=== PATIENT | female | born 2000 | race Two or more races ===

== ENCOUNTER 2021-05-20 18:04 | Emergency (ER) | payer OTHER ==
[~2021-05-20] VITALS: Ht 167.6 cm; Wt 72.6 kg
[2021-05-20] MEDS ORDERED: ADVIL LIQUI-GE200 MG PO (21:17)
== END 2021-05-20 22:16 | disposition home or self-care (01) ==
LOC: ER 18:04 → EMR PED 18:04
DX: R07.89 Other chest pain (principal); M94.0 Chondrocostal junction syndrome [Tietze]; Z11.52 Encounter for screening for COVID-19

== ENCOUNTER 2021-08-01 12:15 | Emergency (ER) | payer OTHER ==
[~2021-08-01] VITALS: Ht 167.6 cm; Wt 72.6 kg
[~2021-08-01 12:15] MED LIST: ADVIL LIQUI-GE200 MG PO
== END 2021-08-01 15:59 | disposition home or self-care (01) ==
LOC: ER 12:15
DX: R00.2 Palpitations (principal); F41.8 Other specified anxiety disorders

== ENCOUNTER 2021-12-27 02:48 | Emergency (ER) | payer OTHER ==
[~2021-12-27] VITALS: Ht 167.6 cm; Wt 74.8 kg
== END 2021-12-27 04:52 | disposition home or self-care (01) ==
LOC: ER 02:48
DX: E16.2 Hypoglycemia, unspecified (principal); R42 Dizziness and giddiness

== ENCOUNTER 2022-03-09 12:06 | Emergency (ER) | payer OTHER ==
[~2022-03-09] VITALS: Ht 167.6 cm; Wt 77.1 kg
[2022-03-09] MEDS ORDERED: ZITHROMAX500 MG PO (16:43)
[2022-03-09] MEDS ORDERED: ALBUTEROL2.5 MG/3 M IH (16:43)
[2022-03-09] MEDS ORDERED: TUSNEL LIQUID178 ML PO (16:43)
== END 2022-03-09 16:55 | disposition home or self-care (01) ==
LOC: ER 12:06
DX: J22 Unspecified acute lower respiratory infection (principal); Z20.822 Contact with and (suspected) exposure to COVID-19

== ENCOUNTER 2022-04-05 11:34 | Outpatient (CLI) | payer OTHER ==
[~2022-04-05 11:34] MED LIST changes: +ALBUTEROL2.5 MG/3 M IH; +TUSNEL LIQUID178 ML PO; +ZITHROMAX500 MG PO
== END 2022-04-05 11:50 | disposition home or self-care (01) ==
LOC: SONOGRAMA 11:34
PROVIDERS: ATTEND Obstetrics & Gynecology
DX: N93.8 Other specified abnormal uterine and vaginal bleeding (principal)

== ENCOUNTER → 2022-04-12 | Emergency (ER) | payer OTHER ==
[~2022-04-12] VITALS: Ht 167.6 cm; Wt 65.8 kg
== END | disposition left against medical advice (07) ==
LOC: ER 23:33
DX: Z53.21 Procedure and treatment not carried out due to patient leaving prior to being seen by health care provider (principal)

== ENCOUNTER 2022-06-14 14:25 | Emergency (ER) | payer OTHER ==
[~2022-06-14] VITALS: Ht 167.6 cm; Wt 74.8 kg
== END 2022-06-14 19:42 | disposition home or self-care (01) ==
LOC: ER 14:25
DX: N93.8 Other specified abnormal uterine and vaginal bleeding (principal)

== ENCOUNTER 2022-10-02 13:27 | Emergency (ER) | payer OTHER ==
[~2022-10-02] VITALS: Ht 167.6 cm; Wt 73.5 kg
== END 2022-10-02 20:05 | disposition home or self-care (01) ==
LOC: ER 13:27
DX: O26.899 Other specified pregnancy related conditions, unspecified trimester (principal); Z3A.00 Weeks of gestation of pregnancy not specified; R10.2 Pelvic and perineal pain; Z88.3 Allergy status to other anti-infective agents

== ENCOUNTER 2023-11-15 11:15 | Emergency (ER) | payer OTHER ==
[~2023-11-15] VITALS: Ht 170.2 cm; Wt 68.0 kg
[2023-11-15 15:02] LABS: PH,URINE 6.5 (5.0-8.0); URINE APPEARANCE Cloudy; URINE BILIRRUBIN Negative (NEGATIVE); URINE BLOOD Trace; URINE COLOR Yellow; URINE GLUCOSE Negative (NEGATIVE); URINE LEUKOCYTE Large; URINE NITRATE Negative; URINE PROTEIN Negative (NEGATIVE); URINE UROBILINOGEN 0.2 E.U./dl
[2023-11-15 15:05] LABS: URINE EPITHELIAL CELLS 38.1 uL (0.0-38.8); URINE RBC 5.7 uL (0.0-20.8); URINE WBC 263.2 uL (0.0-23.2)
[2023-11-15 15:10] LABS: HEMATOCRIT 39.7 % (36.0-45.00); HEMOGLOBIN 13.2 g/dL (12.0-15.00); MEAN CORPUSCULAR HEMOGLOBIN 28.9 pg (27.00-32.0); MEAN CORPUSCULAR HGB CONC 33.2 g/dl (32.0-36.0); PLATELET COUNT 229 K/uL (150-450); RED BLOOD COUNT 4.56 M/uL (4.00-6.00)
== END 2023-11-15 15:46 | disposition home or self-care (01) ==
LOC: ER 11:15
PROVIDERS: General Practice
DX: N39.0 Urinary tract infection, site not specified (principal); Z20.822 Contact with and (suspected) exposure to COVID-19; Z88.8 Allergy status to other drugs, medicaments and biological substances

== ENCOUNTER 2024-02-06 21:05 | Emergency (ER) | payer OTHER ==
[~2024-02-06] VITALS: Ht 157.5 cm; Wt 78.0 kg
[2024-02-06] MEDS ORDERED: hydrOXYzine PAMOATE 50 MG CAPSULE PO STA (22:54)
== END 2024-02-06 23:03 | disposition home or self-care (01) ==
LOC: ER 21:05
DX: R51.9 Headache, unspecified (principal); Z88.8 Allergy status to other drugs, medicaments and biological substances